=== PATIENT | male | born 2000 | race Caucasian/White ===

== ENCOUNTER → 2019-04-26 | Outpatient (CLI) | payer OTHER ==
[2019-04-26 19:41] LABS: ALBUMIN 3.9 GM/DL (3.2-5.2); ALT/SGPT 47 U/L (12-78); BILIRUBIN,TOTAL 1.1 MG/DL (0.2-1.0); BLOOD UREA NITROGEN 13 MG/DL (7-18); CALCIUM LEVEL 9.1 MG/DL (8.5-10.1); CARBON DIOXIDE LEVEL 24 MEQ/L (21-32); CHLORIDE LEVEL 111 MEQ/L (98-107); CREATININE FOR GFR 0.88 MG/DL (0.70-1.30); FREE T4 0.91 NG/DL (0.78-1.33); GLUCOSE, FASTING 87 MG/DL (70-100); POTASSIUM SERUM 4.2 MEQ/L (3.5-5.1); SODIUM LEVEL 143 MEQ/L (136-145); TOTAL PROTEIN 7.8 GM/DL (6.4-8.2)
[2019-04-26 19:48] LABS: BASO % 0.2 % (0.0-1.0); EOS % 0.8 % (0.0-3.0); HEMATOCRIT 44.4 % (42.0-52.0); HEMOGLOBIN 15.2 g/dl (13.5-17.5); LYMPH % 39.9 % (24.0-44.0); MEAN CORPUSCULAR HEMOGLOBIN 28.4 pg (27.0-33.0); MEAN CORPUSCULAR HGB CONC 34.2 g/dl (32.0-36.5); MONO # 0.5 10^3/uL (0.0-0.8); MONO % 9.7 % (0.0-5.0); NEUTROPHILS # 2.5 10^3/uL (1.8-7.7); NEUTROPHILS % 49.2 % (36.0-66.0); PLATELET COUNT, AUTOMATED 179 10^3/uL (150-450); RED BLOOD COUNT 5.35 10^6/uL (4.30-6.10)
[2019-04-30 00:06] LABS: Lyme Disease IgG Ab 18 kDa Ban Absent (.); Lyme Disease IgG Ab 23 kDa Ban Absent (.); Lyme Disease IgG Ab 28 kDa Ban Absent (.); Lyme Disease IgG Ab 30 kDa Ban Absent (.); Lyme Disease IgG Ab 39 kDa Ban Absent (.); Lyme Disease IgG Ab 41 kDa Ban Present (.); Lyme Disease IgG Ab 45 kDa Ban Absent (.); Lyme Disease IgG Ab 58 kDa Ban Absent (.); Lyme Disease IgG Ab 66 kDa Ban Absent (.); Lyme Disease IgG Ab 93 kDa Ban Absent (.); Lyme Disease IgG West Blot Int Negative (.); Lyme Disease IgG/IgM Antibodie <0.91 ISR (0.00-0.90); Lyme Disease IgM Ab 23 kDa Ban Absent (.); Lyme Disease IgM Ab 39 kDa Ban Absent (.); Lyme Disease IgM Ab 41 kDa Ban Absent (.); Lyme Disease IgM Ab Quantitati 1.91 index (0.00-0.79); Lyme Disease IgM West Blot Int Negative (.)
== END ==
LOC: M LABDRWAD 14:46
PROVIDERS: ATTEND Physician Assistant Medical
DX: R51 Headache (principal); R53.83 Other fatigue; F41.9 Anxiety disorder, unspecified

== ENCOUNTER 2019-08-06 21:55 | Emergency (ER) | payer BC, OTHER ==
[~2019-08-06] VITALS: Ht 188 cm; Wt 109.1 kg
[2019-08-06 21:56] VITALS: BP 135/83
--- NOTE | 2019-08-07 08:10 | REP ---
Chest x-ray: Two views. History: Left-sided chest pain. Findings: The lungs are well inflated and clear. Pleural angles are sharp. Pulmonary vasculature is not increased. No significant bony abnormality. Impression: Negative chest x-ray. Electronically Signed by Martin Vidal MD 08/07/2019 08:02 A
--- NOTE | 2019-08-07 08:28 | ECGEPIP ---
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 Order Number: [id number] Reading MD: Mary Lou Anand Measurements Intervals [place] Rate: 66 P: 9 TX: 139 QRS: 43 QRSD: 107 T: 25 QT: 418 QTc: 441 Interpretive Statements SINUS RHYTHM WITH MARKED SINUS ARRHYTHMIA NO PRIOR Electronically Signed on 08-07-2019 8:28:02 EDT by Mary Lou Anand
== END 2019-08-06 23:00 | disposition home or self-care (01) ==
LOC: M ED 21:55
DX: F41.0 Panic disorder [episodic paroxysmal anxiety] (principal); I49.9 Cardiac arrhythmia, unspecified; F31.9 Bipolar disorder, unspecified

== ENCOUNTER → 2020-02-15 | Outpatient (REF) | payer OTHER ==
[2020-02-16 11:56] LABS: CHLAMYDIA DNA AMPLIFICATION NEGATIVE (NEGATIVE); GC DNA AMPLIFICATION NEGATIVE (NEGATIVE)
== END ==
LOC: M LAB REF 09:28
PROVIDERS: ATTEND Physician Assistant
DX: A74.9 Chlamydial infection, unspecified (principal)

== ENCOUNTER → 2020-04-01 | Outpatient (CLI) | payer OTHER | LOC: M LABSMTC 12:34 | PROVIDERS: ATTEND Family Medicine | DX: Z01.812 Encounter for preprocedural laboratory examination (principal); Z11.59 Encounter for screening for other viral diseases ==

== ENCOUNTER 2020-05-16 22:22 | Inpatient (IN) | payer OTHER ==
[~2020-05-16] VITALS: Ht 182.9 cm; Wt 101.9 kg
[2020-05-16] MEDS ORDERED: CHARCOAL ACTIVATED LIQUID 25 GM/120 ML BTL PO ONE (22:45)
[2020-05-16 23:11] LABS: BASO % 0.3 % (0.0-1.0); EOS # 0.1 10^3/uL (0.0-0.5); EOS % 1.4 % (0.0-3.0); HEMATOCRIT 41.2 % (42.0-52.0); HEMOGLOBIN 14.3 g/dl (13.5-17.5); LYMPH # 2.5 10^3/uL (1.5-5.0); LYMPH % 31.8 % (24.0-44.0); MEAN CORPUSCULAR HEMOGLOBIN 28.8 pg (27.0-33.0); MEAN CORPUSCULAR HGB CONC 34.7 g/dl (32.0-36.5); MEAN CORPUSCULAR VOLUME 83.1 fl (80.0-96.0); MONO # 0.5 10^3/uL (0.0-0.8); MONO % 6.8 % (0.0-5.0); NEUTROPHILS # 4.8 10^3/uL (1.5-8.5); NEUTROPHILS % 59.4 % (36.0-66.0); PLATELET COUNT, AUTOMATED 179 10^3/uL (150-450); RED BLOOD COUNT 4.96 10^6/uL (4.30-6.10)
[2020-05-16 23:35] LABS: AMPHETAMINES LEVEL URINE NEGATIVE (NEGATIVE); BARBITURATES URINE NEGATIVE (NEGATIVE); BENZODIAZEPINES URINE NEGATIVE (NEGATIVE); CANNABINOIDS URINE NEGATIVE (NEGATIVE); COCAINE METABOLITE URINE NEGATIVE (NEGATIVE); METHADONE URINE NEGATIVE (NEGATIVE); OPIATES URINE NEGATIVE (NEGATIVE); PHENCYCLIDINE URINE NEGATIVE (NEGATIVE)
[2020-05-16 23:48] LABS: ALBUMIN 4.2 GM/DL (3.2-5.2); ALT/SGPT 37 U/L (12-78); BILIRUBIN,DIRECT 0.2 MG/DL (0.0-0.2); BLOOD UREA NITROGEN 12 MG/DL (7-18); CALCIUM LEVEL 9.3 MG/DL (8.5-10.1); CARBON DIOXIDE LEVEL 29 MEQ/L (21-32); CHLORIDE LEVEL 109 MEQ/L (98-107); CPK CREATINE PHOSPHOKINASE 475 U/L (39-308); ETHYL ALCOHOL (ETHANOL) < 0.003 % (0.000-0.010); GLOMERULAR FILTRATION RATE > 60.0 (>60); GLUCOSE, FASTING 89 MG/DL (70-100); POTASSIUM SERUM 3.3 MEQ/L (3.5-5.1); SALICYLATE LEVEL < 1.7 MG/DL (5.0-30.0); SODIUM LEVEL 145 MEQ/L (136-145); TOTAL PROTEIN 7.9 GM/DL (6.4-8.2)
[2020-05-16 23:49] LABS: ACETAMINOPHEN LEVEL < 2.0 UG/ML (10.0-30.0)
[2020-05-17] MEDS ORDERED: VENTAER INH (05:55)
[2020-05-17] MEDS ORDERED: ACETAMINOPHEN TAB 650MG DOSE (2X325MG) PO PRN (06:00)
[2020-05-17] MEDS ORDERED: traZODone 50 MG TAB PO PRN (06:00)
[2020-05-17] MEDS ORDERED: OLANZapine 5 MG TAB PO PRN (06:00)
[2020-05-17] MEDS ORDERED: MOM 30ML SUSPENSION UDC PO PRN (06:00)
[2020-05-17] MEDS ORDERED: MAALOX 30 ML SUSP *UDC PO PRN (06:00)
--- NOTE | 2020-05-17 10:37 | ECGEPIP ---
[facility] - ED Test Date: 2020-05-16 Pat Name: BROOK SAHU Department: Room: 0102 Gender: Male Rehabilitation Director: MR : 2000 Requested By: GLORIA Camara Order Number: [id number] Reading MD: Mary Lou Anand Measurements Intervals [place] Rate: 67 P: 15 IA: 122 QRS: 14 QRSD: 102 T: 64 QT: 413 QTc: 438 Interpretive Statements SINUS RHYTHM WITH MARKED SINUS ARRHYTHMIA NSTTW abnormalities SIMILAR 08/06/19 Electronically Signed on 05-17-2020 10:36:55 EDT by Mary Lou Anand
--- NOTE | 2020-05-17 10:41 | ECGEPIP ---
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
[2020-05-17 16:37] VITALS: BP 124/66
--- NOTE | 2020-05-17 17:14 | MHHPEPDOC ---
General Date Of Admission: May 17, 2020 Legal Status: 9.39 Chief Complaint "I ended up taking 10 tablets of Benadryl" History of Present Illness HISTORY OF THE PRESENT ILLNESS: Patient is a 19 -year-old , male, who according to ED report: "Chief Complaint Pt states that he is engaged since January 2020 & his fiance is expecting a baby.He states that he is happy about the upcoming marriage & baby, but his fiance's mother does not like him. Pt states that he & his fiance had an argument but worked through it. However, his fiance's mother began sending him texts saying "hurtful things" & he got upset & took the OD on an impulse. He states he regretted doing it immediately & he called his father & his father called EMS. Pt denies SI & states he was just feeling overwhelmed. Another trigger is the of his grandmother last year. Pt denies HI. He denies any hx of suicide attempts or self-harm. Pt denies both AH & VH. He does not appear to be psycho tic. Pt does c/o depressed mood & anxiety, but states that both have improved over the past few years. He states that his concentration, energy levels, sleep, & appetite are normal. He is very tearful & states repeatedly that he wants to go home. He appears to be minimizing his sx's in order to be DC. Pt reports that he was dx with bipolar d/o at the age of [age] & was on meds for a number of years but his provider started weaning him off the meds when [age]was [age]. He had one hospitalization in [place] for SI when he was in 4th grade. No current OP tx. Pt denies any substance use & his tox screen was negative." Psychiatric Review of Systems Depression (2 or more weeks): depressed mood, insomnia/hypersomnia (sleeps a lot), feelings of excess/guilt [place] (4 or more days of): denies Psychosis: denies PTSD: denies Anxiety: stressor related anxiety Anxiety/ 6 months or more of: restlessness, keyed up, sleep disturbance Past Psychiatric History Previous Psychiatric Diagnosis: Bipolar disorder, diagnosed when he was 4 years old. At that time he was in [place] Previous Psychiatric Admissions: yes when he was in 4th. grade in [place], [place] Suicide Attempts: Denies Psychiatric Follow-up: he is trying to get some managed care, he would like to be established with a Psychiatrist and a Therapist Psychiatric medications: None at this time but he took Geodon and Sertraline in the past. Past Medical History Medical Problems Asthma Head Injury: Yes Seizures: No Hospitalizations: Yes (Psychiatric hospitalization in [place] during childhood.) Surgeries: Yes (has been stitched several times, tonsillectomy and adenoidectomy. He had screws placed on hisleft arm during childhood after sustaining an injury) Family Medical/Psychiatric HX Medical Problems Dad has hemorrhoids and HTN. Mom has HTN too Psychiatric Disorders: Yes ("A couple of them who had ADHD") Addiction: No Suicide Attemps/Completions: No Addiction History alcohol (socially) Social History Childhood: family, he has a brother, he says he has a great family support. He has a biological brother and 5 adoptive siblings. He gets along with all of them. Grew up with mom and dad. His parents are still together Abuse/Trauma: Denies Current Living Situation: He lives with his GF, she is and she is due on 08/05. Education: Finished HS, planning on going to [employer] Employment: Unemployed at this time Social Support: His family, his GF Legal: Denies Marital: Single, he is in a relationship, lives with GF. They are going to have a child Mental Status Examination General Appearance: unkempt, disheveled, hospital scubs/clothing Build: overweight Demeanor: preoccupied Eye Contact: average Activity: anxious Behavior: cooperative Speech: clear, rapid, spontaneous Mood: depressed, anxious Affect: full, appropriate, congruent, anxious Thought Process: logical/linear Thought Content (Delusions): none reported Thought Content (Other): none reported Thought Content (Aggressive): none reported Perception (Hallucinations): none reported Perception (Other): none reported Cognition (Impairment of): none reported Cognition(Intelligence Est.): average Oriented: Awake, Alert, Oriented times three Insight: fair Judgment: Poor Psychosis: Denies A-FIB/CHADSVASC A-FIB History Current/History of A-Fib/PAF?: No Current PO Anticoag Therapy: No Age/Risk Factor Scoring CHADSVASC: CHADSVASC Response (Comments) Value Age Risk Factor Age < 65 years old 0 Gender Risk Factor Male 0 Hx of CHF No 0 Hx of HTN No 0 Hx of Stroke/TIA/or VTE No 0 Hx of Diabetes No 0 Hx of Vascular Disease No 0 Total 0 Treatment Treatment ordered: NONE Reason Anticoagulant not given: Not indicated/[id number] Assessment Patient is not suicidal, not homicidal, not psychotic. He is tearful because he feels guilty about taking the Benadryl yesterday. He says he never planned on taking an OD, he just did it impulsively, he doesn't know why he did it. As soon as he did it, he called his father. He seems very sensitive to other people's opinions about him, he is sad and anxious, he wants treatment for his mental illness. He was diagnosed with bipolar disorder during childhood, but bipolar d isorder is very rare in children, it presents later in life. He has not been medications for a long period of time and he hs been stable. I won't order any medications because what he needs at this time is support, he needs to set boundaries, he needs coping skills. Initial Treatment Plan 1. Patient was admitted on a [9.39] status. 2. Complete history was obtained. 3. With patients permission, family will be contacted and database will be expanded. 4. Patients medication regimen will be reviewed and changed accordingly. 5. Patient will be provided with protected environment. 6. Patient will be treated with individual, group, and milieu therapies. 7. Patient will receive supportive psych-education. 8. Discharge planning will commence immediately. 9. Outpatient follow-up treatment will be strongly recommended. 10. The initial treatment plan will focus initially on: * Depression. * Risk for suicide. ESTIMATED LENGTH OF STAY: 5-7 DAYS. TIME SPENT COUNSELING AND COORDINATING INITIAL CARE: 60 minutes. Vital Signs Vital Signs Date Time Temp Pulse Resp B/P (MAP) Pulse Ox O2 Delivery O2 Flow Rate FiO2 05/17/20 09:09 96.8 62 16 136/76 (96) 100 Room Air Laboratory Data 24H Labs Laboratory Tests 2 05/16/20 22:47: Immature Granulocyte % (Auto) 0.3, Neutrophils (%) (Auto) 59.4, Lymphocytes (%) (Auto) 31.8, Monocytes (%) (Auto) 6.8H, Eosinophils (%) (Auto) 1.4, Basophils (%) (Auto) 0.3, Neutrophils # (Auto) 4.8, Lymphocytes # (Auto) 2.5, Monocytes # (Auto) 0.5, Eosinophils # (Auto) 0.1, Basophils # (Auto) 0.0, Nucleated Red Blood Cells % (auto) 0.0, Anion Gap 7L, Glomerular Filtration Rate > 60.0, Calcium Level 9.3, Total Bilirubin 1.0, Direct Bilirubin 0.2, Aspartate Amino Transf (AST/SGOT) 32, Alanine Aminotransferase (ALT/SGPT) 37, Alkaline Phos phatase 64, Total Creatine Kinase 475H, Total Protein 7.9, Albumin 4.2, Albumin/Globulin Ratio 1.1, Thyroid Stimulating Hormone (TSH) 1.540, Salicylates Level < 1.7L, Urine Opiates Screen NEGATIVE, Urine Methadone Screen NEGATIVE, Acetaminophen Level < 2.0L, Urine Barbiturates Screen NEGATIVE, Urine Phencyclidine Screen NEGATIVE, Urine Amphetamines Screen NEGATIVE, Urine Benzodiazepines Screen NEGATIVE, Urine Cocaine Metabolite Screen NEGATIVE, Urine Cannabinoids Screen NEGATIVE, Ethyl Alcohol Level < 0.003, Coronavirus (COVID- 19)(PCR) NEGATIVE CBC/BMP Laboratory Tests 05/16/20 22:47 Medications Scheduled PRN Albuterol Sulfate (Ventolin Hfa) 18 Gm Hfa.aer.ad, 1 PUFF INH QID PRN for WHEEZING, (Reported) Allergies Coded Allergies: No Known Allergies (Unverified , 08/06/19) WENDY VELAZQUEZ MD May 17, 2020 17:14
[2020-05-18 06:10] VITALS: BP 109/56
--- NOTE | 2020-05-18 11:12 | MHIPNPDOC ---
[facility] Progress Note Progress Note DATE OF SERVICE: 05/18/20 HPI: Sylvester presents today for a follow-up. He mentions he felt sad, scared, and regretful yesterday but today he states he feels much better. Sylvester reports he is having a baby which was planned and reports he is getting to his fianc on July 07. Sylvester notes he has his own apartment but mentions he has been feeling stressed lately. He reports he did not have any suicidal thoughts when everything was happening, but his future [id number] was being hurtful. He mentions there was no thought process behind it and many things were going on. Sylvester admits he has tried to realize the triggers of his stress and tried to figure out ways to avoid it. He states he has tried to keep up with his diet because last year he was at his heaviest, so once his Buppe , he started to rethink his lifestyle and choices. Objective Appearance: Well groomed. Well nourished. Behavior: Cooperative with good eye contact. Pleasant. Engaged. Affect: Full range. Appropriate to context. Mood: Generally good. Appropriately reactive. Euthymic. Speech: Normal volume. Normal rate. Motor: No gross motor abnormalities. Cognition: Alert, Attentive, and Oriented to person, place, time. Memory: No formal testing. No gross abnormalities of short or retirement memory noted during interview. Thought Form: Linear and goal directed. Thought Content: No thoughts of self harm. No evidence of aggressive or homicidal ideation. No evidence of suicidal ideation. No evidence of delusions. Perception: No perceptual abnormalities noted. Judgement: intact as evidenced by decision making in the recent past. Insight: good insight into symptoms and treatment options. 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 Primarily supportive. Likely discharge on Wednesday if continues to not be suicidal. Educated patient significantly on safety planning and needs counseling. Vital Signs Vital Signs Date Time Temp Pulse Resp B/P (MAP) Pulse Ox O2 Delivery O2 Flow Rate FiO2 05/18/20 06:10 97.2 50 16 109/56 (73) 05/17/20 09:09 100 Room Air Current Medications Current Medications Medications (Trade) Dose Ordered Sig/Abigail Route PRN Reason Start Time Stop Time Status Last Admin Dose Admin Acetaminophen (Tylenol Tab) 650 mg Q6HP PRN PO HEADACHE or DISCOMFORT 05/17/20 06:00 Al Hydrox/Mg Hydrox/Simethicone (Mylanta) 30 ml Q4HP PRN PO HEARTBURN/INDIGESTION 05/17/20 06:00 Home Med (Med Rec Complete!) ASDIRECTED XX 05/17/20 06:00 05/17/20 05:57 DC Magnesium Hydroxide (Milk Of Magnesia) 30 ml DAILYPRN PRN PO CONSTIPATION 05/17/20 06:00 Olanzapine (ZyPREXA) 5 mg Q6HP PRN PO ANXIETY/AGITATION 05/17/20 06:00 Trazodone HCl (Desyrel) 50 mg QHSP PRN PO INSOMNIA 05/17/20 06:00 Allergies Coded Allergies: No Known Allergies (Unverified , 08/06/19) JOSE CARLOS JUAREZ DO May 18, 2020 11:12
[2020-05-18 16:25] VITALS: BP 127/61
[2020-05-19 06:26] VITALS: BP 138/62
--- NOTE | 2020-05-19 12:41 | MHIPNPDOC ---
[facility] Progress Note Progress Note DATE OF SERVICE: 05/19/20 HPI: Sylvester presents today for a follow up and is ready for discharge tomorrow. He is feeling well and denies any suicidal feelings. He has been spending his time singing songs and playing guitar. Objective Appearance: Well nourished. Well groomed. Behavior: Pleasant. Engaged. Cooperative with good eye contact. Affect: Appropriate to context. Full range. Mood: Generally good. Euthymic. Appropriately reactive. Speech: Normal volume. Normal rate. Motor: No gross motor abnormalities. Cognition: Alert, Attentive, and Oriented to person, place, time. Memory: No gross abnormalities of short or video production intern memory noted during interview. No formal testing. Thought Form: Linear and goal directed. Thought Content: No evidence of suicidal ideation. No evidence of delusions. No thoughts of self harm. No evidence of aggressive or homicidal ideation. Perception: No perceptual abnormalities noted. Judgement: intact as evidenced by decision making in the recent past. Insight: good insight into symptoms and treatment options. Assessment F43.20 Adjustment disorder, unspecified Plan Continue to monitor and discharge tomorrow. Vital Signs Vital Signs Date Time Temp Pulse Resp B/P (MAP) Pulse Ox O2 Delivery O2 Flow Rate FiO2 05/19/20 06:26 96.9 59 18 138/62 (87) 05/17/20 09:09 100 Room Air Current Medications Current Medications Medications (Trade) Dose Ordered Sig/Abigail Route PRN Reason Start Time Stop Time Status Last Admin Dose Admin Acetaminophen (Tylenol Tab) 650 mg Q6HP PRN PO HEADACHE or DISCOMFORT 05/17/20 06:00 Al Hydrox/Mg Hydrox/Simethicone (Mylanta) 30 ml Q4HP PRN PO HEARTBURN/INDIGESTION 05/17/20 06:00 Home Med (Med Rec Complete!) ASDIRECTED XX 05/17/20 06:00 05/17/20 05:57 DC Magnesium Hydroxide (Milk Of Magnesia) 30 ml DAILYPRN PRN PO CONSTIPATION 05/17/20 06:00 Olanzapine (ZyPREXA) 5 mg Q6HP PRN PO ANXIETY/AGITATION 05/17/20 06:00 Trazodone HCl (Desyrel) 50 mg QHSP PRN PO INSOMNIA 05/17/20 06:00 Allergies Coded Allergies: No Known Allergies (Unverified , 08/06/19) JOSE CARLOS JUAREZ DO May 19, 2020 12:41
[2020-05-19 16:30] VITALS: BP 110/74
[2020-05-20 06:40] VITALS: BP 114/61
--- NOTE | 2020-05-20 09:13 | MHDSPDOC ---
[facility] Discharge Summary Discharge Summary DATE OF ADMISSION: May 17, 2020 at 05:53 DATE OF DISCHARGE:May 20, 2020 at 13:40 DISCHARGE DIAGNOSES: Adjustment disorder , cluster B personality disorder REASON FOR ADMISSION: 19-year-old man with a history of depression and cluster B personality traits presents after small overdose of Benadryl CONSULTANTS INVOLVED:[ None (basic hospitalist screening)] TREATMENT AND PROGRESS ON THE UNIT : Medication changes: elected against medications, wanted to try primarily focusing therapy, made good progress on the unit Behavior on unit: friendly and amenable Treatment attendance: highly adherent Notable issues on presentation: none State on discharge: [improved] DISCHARGE ASSESSMENT: The patient a 19 year old man, with likely adjustment problems on top of cluster B personality traits, presented to [facility], where they treated with supportive treatments, after discussion of the risks and benefits. Legal status considerations: The patient at the time of discharge did not meet criteria for involuntary admission/extension due to having a [normal] mental status exam, [fair] insight into the situation, They are engaged in the discharge process, as well as being friendly and amenable in behavioral control and havent been engaging in any observed concerning behavior or ideation recently. They decline voluntary extension/admission at this time and must be discharged in good carmen, as Im unable to make a case for holding the patient against their will. They may have historical risk factors of admissions and other interactions with psychiatry however, those are not modifiable from a clinical perspective. The patient will need to be discharged in good carmen. MENTAL STATUS EXAMINATION ON DISCHARGE: [General: Well dressed with good hygiene Speech: Spontaneous and fluid Thought processes: Linear and logical Thought content: Future orientated Abstract reasoning, and computation: Intact Description of associations: Intact Description of abnormal or psychotic thoughts:Denies any suicidal or homicidal ideation. Denies any auditory or visual hallucinations. Does not appear to be responding to internal stimuli. Does not appear to be endorsing any bizarre or paranoid ideation. Judgment: fair Insight: fair Orientation: Alert and orientated 3 Recent and remote memory: Intact Attention span and concentration: Intact Fund of knowledge: Adequate Mood: "okay" Affect: Euthymic with a full range] PLAN/FOLLOWUP ARRANGEMENTS: Follow up appointments made (PCP and MH in 5 days of D/C date) and safety plan completed. Safety Planning aspects completed prior to discharge [Family contact completed, educated on safe practices, instructed on removal and mitigation of dangerous means] [RN reviewed crisis hotline information and other aspects to empower patient to access care in interim before next appointment.] The amount of time spent in the coordination of care for this patient was approximately 30 minutes. Vital Signs/I&Os Vital Signs Date Time Temp Pulse Resp B/P (MAP) Pulse Ox O2 Delivery O2 Flow Rate FiO2 05/20/20 06:40 97.4 68 12 114/61 (78) Room Air 05/17/20 09:09 100 Medications Scheduled PRN Albuterol Sulfate (Ventolin Hfa) 18 Gm Hfa.aer.ad, 1 PUFF INH QID PRN for WHEEZING, (Reported) Allergies Coded Allergies: No Known Allergies (Unverified , 08/06/19) JOSE CARLOS JUAREZ DO May 20, 2020 09:13
== END 2020-05-20 13:40 | disposition home or self-care (01) | DRG 883 ==
LOC: EDBD 22:22 → M ED 22:22 → M ED INP 05-17 05:53 → M PSY 05-17 09:15
PROVIDERS: ADMIT Psychiatry & Neurology Psychiatry; ATTEND Psychiatry & Neurology Addiction Medicine
DX: F60.89 Other specific personality disorders (principal)

== ENCOUNTER 2020-07-25 08:10 | Emergency (ER) | payer OTHER, SELFPAY ==
[~2020-07-25] VITALS: Ht 182.9 cm; Wt 100.0 kg
[~2020-07-25 08:10] MED LIST: VENTAER INH
[2020-07-25] MEDS ORDERED: NS 1,000 ML IV ONE (08:30)
[2020-07-25] MEDS ORDERED: ONDANSETRON 4MG/2ML VIAL IV ONE (08:30)
[2020-07-25] MEDS ORDERED: KETOROLAC 30 MG/ML 1ML VIAL IV ONE (08:30)
[2020-07-25] MEDS ORDERED: ISOVUE-370 76% 100ML VIAL As Ordered ONE (09:17)
[2020-07-25 09:18] LABS: BASO % 0.4 % (0.0-1.0); EOS # 0.1 10^3/uL (0.0-0.5); EOS % 2.2 % (0.0-3.0); HEMATOCRIT 40.2 % (42.0-52.0); HEMOGLOBIN 13.6 g/dl (13.5-17.5); LYMPH # 2.3 10^3/uL (1.5-5.0); LYMPH % 41.1 % (24.0-44.0); MEAN CORPUSCULAR HEMOGLOBIN 28.9 pg (27.0-33.0); MEAN CORPUSCULAR HGB CONC 33.8 g/dl (32.0-36.5); MEAN CORPUSCULAR VOLUME 85.4 fl (80.0-96.0); MONO # 0.3 10^3/uL (0.0-0.8); MONO % 4.9 % (0.0-5.0); NEUTROPHILS # 2.8 10^3/uL (1.5-8.5); NEUTROPHILS % 50.7 % (36.0-66.0); PLATELET COUNT, AUTOMATED 161 10^3/uL (150-450); RED BLOOD COUNT 4.71 10^6/uL (4.30-6.10); WHITE BLOOD COUNT 5.6 10^3/uL (4.0-10.0)
[2020-07-25 09:37] LABS: BILIRUBIN,DIRECT 0.2 MG/DL (0.0-0.2); BILIRUBIN,TOTAL 0.8 MG/DL (0.2-1.0); TOTAL PROTEIN 7.6 GM/DL (6.4-8.2)
--- NOTE | 2020-07-25 10:11 | REPVR ---
PROCEDURE INFORMATION: Exam: CT Abdomen And Pelvis With Contrast Exam date and time: 07/25/2020 8:30 AM Age: 19 years old Clinical indication: Abdominal pain; Additional info: Right lower quadrant pain TECHNIQUE: Imaging protocol: Computed tomography of the abdomen and pelvis with intravenous contrast. Coronal and sagittal reformats were created and reviewed. Radiation optimization: All CT scans at this facility use at least one of these dose optimization techniques: automated exposure control; mA and/or kV adjustment per patient size (includes targeted exams where dose is matched to clinical indication); or iterative reconstruction. Contrast material: ISOVUE 370; Contrast volume: 100 ml; Contrast route: INTRAVENOUS (IV); COMPARISON: No relevant prior studies available. FINDINGS: Lungs: Right middle lobe small peripheral consolidation. Right lower lobe basilar small peripheral ground-glass opacities. Liver: Liver is unremarkable. Gallbladder and bile ducts: The gallbladder is unremarkable. No intrahepatic or extrahepatic bile duct dilation. Pancreas: Pancreas is unremarkable. Spleen: Splenomegaly. The spleen measures 14.2 x 5.9 x 14.6 cm. Adrenals: Adrenal glands are unremarkable. Kidneys and ureters: The kidneys are unremarkable. No abnormal ureteral dilation. Stomach and bowel: The stomach is unremarkable. No evidence of small bowel inflammation or obstruction. No evidence of colonic inflammation or obstruction. Moderate colonic stool burden. Appendix: No evidence of appendicitis. Intraperitoneal space: No free intraperitoneal fluid. No pneumoperitoneum. Vasculature: No abdominal aortic aneurysm. Lymph nodes: No enlarged lymph nodes. Bladder: Urinary bladder is unremarkable. Reproductive: Unremarkable as visualized. Bones/joints: No acute osseous abnormality. L4-L5 small posterior disc bulge. Soft tissues: Unremarkable. IMPRESSION: 1. Splenomegaly. 2. Nonspecific small airspace opacities of the imaged right middle lobe and right lower lobe. Clinical correlation for possible pneumonia is recommended. Electronically signed by: Dante Gong On 07/25/2020 10:10:48 AM
[2020-07-25 12:38] LABS: MONO REFLEX EBV COMP NEGATIVE (NEGATIVE)
[2020-07-25] MEDS ORDERED: MIRA3350 PO (13:55)
[2020-07-25] MEDS ORDERED: AZIT-12 PO (13:55)
[2020-07-25 13:59] VITALS: BP 127/69
[2020-07-26 19:09] LABS: EBV VIRAL CAPSID AG IgG >600.0 U/mL (0.0-17.9); EBV VIRAL CAPSID AG IgM <36.0 U/mL (0.0-35.9)
== END 2020-07-25 14:08 | disposition home or self-care (01) ==
LOC: M ED 08:10
DX: J18.9 Pneumonia, unspecified organism (principal); K59.00 Constipation, unspecified; R16.1 Splenomegaly, not elsewhere classified; F31.9 Bipolar disorder, unspecified; Z87.442 Personal history of urinary calculi; J45.990 Exercise induced bronchospasm
CPT/HCPCS: 74177; 80047; 80076; 81001; 83690; 85025; 86308; 86664; 86665; 87486; 87581; 87633; 87798; 96361; 96374; 96375; 99284; J1885; J2405; Q9967

== ENCOUNTER 2020-08-29 10:27 | Emergency (ER) | payer OTHER ==
[~2020-08-29] VITALS: Ht 182.9 cm; Wt 98.8 kg
[~2020-08-29 10:27] MED LIST changes: +AZIT-12 PO; +MIRA3350 PO
--- NOTE | 2020-08-29 11:27 | REPVR ---
PROCEDURE INFORMATION: Exam: XR Chest, 2 Views Exam date and time: 08/29/2020 11:17 AM Age: 19 years old Clinical indication: Injury or trauma; Other: Box fell on him; Swelling (edema); Additional info: Box fell on patient TECHNIQUE: Imaging protocol: XR of the chest Views: Frontal and lateral upright views. COMPARISON: RI Chest, 2 view PA, Lat 08/06/2019 10:29 PM FINDINGS: Lungs: The lungs are clear bilaterally. The pulmonary vasculature is normal. Pleural space: No pleural effusion. No pneumothorax. Heart/Mediastinum: The heart is normal in size and contour. Mediastinum: Stable. Bones/joints: Stable. IMPRESSION: No acute cardiopulmonary abnormality identified. No acute injury identified. Electronically signed by: Lance Mata On 08/29/2020 11:27:44 AM
[2020-08-29 11:49] VITALS: BP 120/76
== END 2020-08-29 11:51 | disposition home or self-care (01) ==
LOC: M ED 10:27
DX: S23.41XA Sprain of ribs, initial encounter (principal); W22.8XXA Striking against or struck by other objects, initial encounter; Y92.89 Other specified places as the place of occurrence of the external cause; Y93.9 Activity, unspecified; Y99.1 Military activity; J45.909 Unspecified asthma, uncomplicated

== ENCOUNTER 2020-09-19 15:09 | Emergency (ER) | payer OTHER, SELFPAY ==
[~2020-09-19] VITALS: Ht 182.9 cm; Wt 102.7 kg
[2020-09-19] MEDS ORDERED: NS 1,000 ML IV ONE (16:15)
[2020-09-19 17:17] LABS: BASO % 0.3 % (0.0-1.0); EOS # 0.1 10^3/uL (0.0-0.5); EOS % 1.4 % (0.0-3.0); HEMATOCRIT 38.7 % (42.0-52.0); LYMPH # 2.2 10^3/uL (1.5-5.0); LYMPH % 32.3 % (24.0-44.0); MEAN CORPUSCULAR HEMOGLOBIN 28.5 pg (27.0-33.0); MEAN CORPUSCULAR HGB CONC 33.6 g/dl (32.0-36.5); MEAN CORPUSCULAR VOLUME 84.9 fl (80.0-96.0); MONO # 0.3 10^3/uL (0.0-0.8); NEUTROPHILS # 4.1 10^3/uL (1.5-8.5); NEUTROPHILS % 60.8 % (36.0-66.0); PLATELET COUNT, AUTOMATED 155 10^3/uL (150-450); RED BLOOD COUNT 4.56 10^6/uL (4.30-6.10); WHITE BLOOD COUNT 6.7 10^3/uL (4.0-10.0)
[2020-09-19 17:45] LABS: ALT/SGPT 25 U/L (12-78); BILIRUBIN,DIRECT 0.1 MG/DL (0.0-0.2); BILIRUBIN,TOTAL 0.6 MG/DL (0.2-1.0); BLOOD UREA NITROGEN 11 MG/DL (7-18); CALCIUM LEVEL 9.1 MG/DL (8.5-10.1); CARBON DIOXIDE LEVEL 26 MEQ/L (21-32); CHLORIDE LEVEL 109 MEQ/L (98-107); CREATININE FOR GFR 0.87 MG/DL (0.70-1.30); GLOMERULAR FILTRATION RATE > 60.0 (>60); GLUCOSE, FASTING 119 MG/DL (70-100); LIPASE 276 U/L (73-393); POTASSIUM SERUM 3.9 MEQ/L (3.5-5.1); SODIUM LEVEL 142 MEQ/L (136-145); TOTAL PROTEIN 7.3 GM/DL (6.4-8.2)
[2020-09-19 18:09] VITALS: BP 131/69
== END 2020-09-19 18:11 | disposition home or self-care (01) ==
LOC: M ED 15:09
DX: R06.02 Shortness of breath (principal); Z20.828 Contact with and (suspected) exposure to other viral communicable diseases
CPT/HCPCS: 80048; 80076; 83690; 85025; 96360; 99284; U0003

== ENCOUNTER 2020-12-18 10:52 | Emergency (ER) | payer MEDICAID, SELFPAY ==
[~2020-12-18] VITALS: Ht 182.9 cm; Wt 99.9 kg
--- OUTSIDE RECORDS SUMMARY | 2020-12-18 11:00 | CCD ---
Author Author [facility] Organization [facility] Address Unknown Phone Unavailable Care Team Providers Care Gun Welder Name Role Phone IKEAUGUSTO PA Unavailable Unavailable IKE, AUGUSTO PA Unavailable Unavailable IKE, AUGUSTO PA Unavailable Unavailable IKE, AUGUSTO PA Unavailable Unavailable IKE, AUGUSTO PA Unavailable Unavailable IKE, AUGUSTO PA Unavailable Unavailable IKE, AUGUSTO PA Unavailable Unavailable IKE, AUGUSTO PA Unavailable Unavailable IKE, AUGUSTO PA Unavailable Unavailable IKE, AUGUSTO PA Unavailable Unavailable IKE, AUGUSTO PA Unavailable Unavailable IKE, AUGUSTO PA Unavailable Unavailable IKE, AUGUSTO PA Unavailable Unavailable IKE, AUGUSTO PA Unavailable Unavailable IKE, AUGUSTO PA Unavailable Unavailable IKE, AUGUSTO PA Unavailable Unavailable IKE, AUGUSTO PA Unavailable Unavailable IKE, AUGUSTO PA Unavailable Unavailable IKE, AUGUSTO PA Unavailable Unavailable IKE, AUGUSTO PA Unavailable Unavailable IKE, AUGUSTO PA Unavailable Unavailable IKE, AUGUSTO PA Unavailable Unavailable IKE, AUGUSTO PA Unavailable Unavailable IKE, AUGUSTO PA Unavailable Unavailable IKE, AUGUSTO PA Unavailable Unavailable IKE, AUGUSTO PA Unavailable Unavailable IKE, AUGUSTO PA Unavailable Unavailable IKE, AUGUSTO PA Unavailable Unavailable IKE, AUGUSTO PA Unavailable Unavailable IKE, AUGUSTO PA Unavailable Unavailable IKE, AUGUSTO PA Unavailable Unavailable IKE, AUGUSTO PA Unavailable Unavailable IKE, AUGUSTO PA Unavailable Unavailable IKE, AUGUSTO PA Unavailable Unavailable IKE AUGUSTO OLIVIER Unavailable Unavailable IKE, AUGUSTO OLIVIER Unavailable Unavailable IKE AUGUSTO OLIVIER Unavailable Unavailable IKE AUGUSTO OLIVIER Unavailable Unavailable Re-disclosure Warning The records that you are about to access may contain information from federally-assisted alcohol or drug abuse programs. If such information is present, then the following federally mandated warning applies: This information has been disclosed to you from records protected by federal confidentiality rules (42 CFR part 2). The federal rules prohibit you from making any further disclosure of this information unless further disclosure is expressly permitted by the written consent of the person to whom it pertains or as otherwise permitted by 42 CFR part 2. A general authorization for the release of medical or other information is NOT sufficient for this purpose. The Federal rules restrict any use of the information to criminally investigate or prosecute any alcohol or drug abuse patient.The records that you are about to access may contain highly sensitive health information, the redisclosure of which is protected by Article 27-F of the [facility] Public Health law. If you continue you may have access to information: Regarding HIV / AIDS; Provided by facilities licensed or operated by the [facility] Office of Mental Health; or Provided by the [facility] Office for People With Developmental Disabilities. If such information is present, then the following [facility] mandated warning applies: This information has been disclosed to you from confidential records which are protected by state law. State law prohibits you from making any further disclosure of this information without the specific written consent of the person to whom it pertains, or as otherwise permitted by law. Any unauthorized further disclosure in violation of state law may result in a fine or retirement sentence or both. A general authorization for the release of medical or other information is NOT sufficient authorization for further disc losure. Encounters Encounter Providers Location Date Indications Data Source(s ) Outpatient Attender: AUGUSTO cruz 02/15/2020 04:50:00 PM EDT [facility] ([facility] Medications Medication Brand Name Start Date Product Form Dose Route Admi nistrative Instructions Pharmacy Instructions Status Indications Reaction Description Data Source(s) 17 gram/dose 07/25/2020 12:00:00 AM EDT powder 238 USE 17 GRAMS DILUTED IN 8 OUNCES OF JUICE OR WATER DAILY NEEDED FOR CONSTIPATION USE 17 GRAMS DILUTED IN 8 OUNCES OF JUICE OR WATER DAILY NEEDED FOR CONSTIPATION SOLD: 07/26/2020 [facility] 250 mg 07/25/2020 12:00:00 AM EDT tablet 6 TAKE TWO TABLETS BY MOUTH AT ONCE ON THE FIRST DAY THEN TAKE ONE DAILY THEREAFTER TAKE TWO TABLETS BY MOUTH AT ONCE ON THE FIRST DAY THEN TAKE ONE DAILY THEREAFTER SOLD: 07/26/2020 [facility] 250 mg 02/16/2020 12:00:00 AM EDT tablet 4 TAKE 4 TABLETS BY MOUTH FOR 1 DOSE TAKE 4 TABLETS BY MOUTH FOR 1 DOSE SOLD: 02/16/2020 [facility] No Active Medications 02/16/2020 12:00:00 AM EDT active [facility] ([facility], [facility]) Azithromycin 250 MG Oral Tablet Azithromycin 02/15/2020 12:00:00 AM E DT ORAL completed [facility] ([facility], [facility]) Insurance Providers Payer name Policy type / Coverage type Policy ID Covered libertarian ID Covered libertarian's relationship to tilley Policy Tilley Plan Information SELF PAY ONLY [id number] SP [id number] [facility] 040 [id number] UNK2 [id number] EAST HUMANA [id number] FA2 [id number] [place] HUMANA [id number] FA2 [id number] [facility] HUMANA [id number] SP [id number] BRANDON IVY WORKER COMP [id number] SP [id number] FIVE BELOW [id number] SP [id number] SELF PAY ONLY SP BLUE [facility] 040 [id number] UNK2 [id number] O UNAVAILABLE UNAVAILA BLE [facility] 040 [id number] SP [id number] [place] Commercial [id number] Family Dependent [id number] Results ID Date Data Source [id number] 09/19/2020 04:49:00 PM EST [facility] Name Value Range Interpretation Code Description Data Hafsa rce(s) Supporting Document(s) SARS coronavirus 2 RNA [facility] This lab was ordered by [facility] and reported by [facility]. ID Date Data Source [id number] 04/01/2020 12:20:00 PM EDT [facility] Name Value Range Interpretation Code Description Data Hafsa rce(s) Supporting Document(s) SARS CORONAVIRUS 2 RNA [facility] This lab was ordered by [facility] and reported by [facility]. ID Date Data Source [id number] 02/15/2020 07:22:00 PM EDT [facility] Name Value Range Interpretation Code Description Data Hafsa rce(s) Supporting Document(s) Chlamydia Dna Amplification Laboratory test result [facility] ([facility]) A negative test result does not exclude the possibility of infection because test results may be affected by improper specimen collection, technical error, specimen mix-up, concurrent antibiotic therapy, or the number of organisms in the specimen which may be below the sensitivity of the test. GC Dna Amplification Laboratory test result [facility] ([facility]) A negative test result does not exclude the possibility of infection because test results may be affected by improper specimen collection, technical error, specimen mix-up, concurrent antibiotic therapy, or the number of organisms in the specimen which may be below the sensitivity of the test. Procedure Social History Code Duration Value Status Description Data Source(s ) Smoking 02/15/2020 12:00:00 AM EDT Patient has never smoked co mpleted Patient has never smoked [facility] ([facility]) Vital Signs ID Date Data Source UNK Name Value Range Interpretation Code Description Data Source(s) Body temperature 99.2 [degF] 99.2 [degF] [facility] ([facility]) Oxygen saturation in Arterial blood by Pulse oximetry 98 % 98 % [facility] ([facility]) Respiratory rate 16 /min 16 /min [facility] ( [facility]) Heart rate 60 /min 60 /min [facility] ([facility]) Diastolic blood pressure 71 mm[Hg] 71 mm[Hg] [facility] ([facility]) Systolic blood pressure 125 mm[Hg] 125 mm[Hg] [facility] Body mass index (BMI) [Ratio] 29.7 kg/m2 29.7 k g/m2 [facility] ([facility]) Body height 73 [in_i] 73 [in_i] SILVIA ([facility], [facility]) 6'1" Body weight 225.00 [lb_av] 225.00 [lb_av] NICA Barth ([facility], [facility])
--- OUTSIDE RECORDS SUMMARY | 2020-12-18 12:13 | CCD ---
Author Author [facility] Organization [facility] Address Unknown Phone Unavailable Care Team Providers Care Maintenance Service Supervisor Name Role Phone IKEAUGUSTO PA Unavailable Unavailable [...] Unavailable Unavailable IKE, AUGUSTO OLIVIER Unavailable Unavailable Re-disclosure Warning The [...] is protected by Article 27-F of the [facility] Public Health law. If you continue you may have access to information: Regarding HIV / AIDS; Provided by facilities licensed or operated by the [facility] Office of Mental Health; or Provided by the [facility] Office for People With Developmental Disabilities. If such information is present, then the following [facility] mandated warning applies: This information has been [...] law may result in a fine or fdc sentence or both. A general authorization for the release of medical or other information is NOT sufficient authorization for further disc losure. Encounters Encounter Providers Location Date Indications Data Source(s ) Outpatient Attender: AUGUSTO cruz 02/15/2020 04:50:00 PM EDT [facility] ([facility]) Medications Medication Brand Name Start Date Product [...] Medications 02/16/2020 12:00:00 AM EDT active [facility] ([facility]) Azithromycin 250 MG Oral Tablet Azithromycin 02/15/2020 12:00:00 AM E DT ORAL completed [facility] ([facility], [facility]) Insurance Providers Payer name Policy type / Coverage type Policy ID Covered democrat ID Covered democrat's relationship to tilley Policy Tilley Plan Information EMEDNY [id number] SP [id number] SELF PAY ONLY [id number] SP [id number] BCBS [facility] 040 [id number] UNK2 [id number] [facility] [id number] FA2 [id number] [facility] [id number] FA2 [id number] [facility] [id number] SP [id number] BRANDON WRIGHTETT WORKER COMP [id number] SP [id number] FIVE BELOW [id number] SP [id number] SELF PAY ONLY SP BLUE [facility] 040 [id number] UNK2 [id number] O UNAVAILABLE UNAVAILA BLE [facility] 0[facility] [id number] SP [id number] [facility] Commercial [id number] Family Dependent [id number] Results ID Date Data Source [id number] 09/19/2020 04:49:00 PM EST [facility] Name Value Range Interpretation Code Description Data Hafsa rce(s) Supporting Document(s) SARS coronavirus 2 RNA [facility] This lab was ordered by [facility] and reported by [facility]. ID Date Data Source [id number] 04/01/2020 12:20:00 PM EDT [facility] Name Value Range Interpretation Code Description Data Hafsa rce(s) Supporting Document(s) SARS CORONAVIRUS 2 RNA [facility] This lab was ordered by [facility] and reported by [facility]. ID Date Data Source [id number] 02/15/2020 07:22:[facility] Name Value Range Interpretation Code Description Data Hafsa rce(s) Supporting Document(s) Chlamydia Dna Amplification Laboratory test result [facility] ([facility]) A negative test result does not exclude the possibility of infection because test results may be affected by improper specimen collection, technical error, specimen mix-up, concurrent antibiotic therapy, or the number of organisms in the specimen which may be below the sensitivity of the test. GC Dna Amplification Laboratory test result [facility] ([facility]) A negative test result does not exclude [...] smoked co mpleted Patient has never smoked [facility] ([facility]) Vital Signs ID Date Data Source UNK Name Value Range Interpretation Code Description Data Source(s) Body temperature 99.2 [degF] 99.2 [degF] [facility] ([facility]) Oxygen saturation in Arterial blood by Pulse oximetry 98 % 98 % [facility] ([facility]) Respiratory rate 16 /min 16 /min [facility] ( [facility]) Heart rate 60 /min 60 /min [facility] ([facility]) Diastolic blood pressure 71 mm[Hg] 71 mm[Hg] [facility] ([facility]) Systolic blood pressure 125 mm[Hg] 125 mm[facility]Hg] [facility] Body mass index (BMI) [Ratio] 29.7 kg/m2 29.7 k g/m2 [facility] ([facility]) Body height 73 [in_i] 73 [in_i] [facility] ([facility]) 6'1" Body weight 225.00 [lb_av] 225.00 [lb_av] NICA Barth ([facility], [facility])
--- NOTE | 2020-12-18 12:14 | REP ---
INDICATION: left knee injury/pain COMPARISON: None. TECHNIQUE: Five views left knee. FINDINGS: There is no evidence of acute fracture, dislocation, or intrinsic bone disease.There is no definite radiographic evidence of a joint effusion. The joint spaces are unremarkable. IMPRESSION: No fracture or dislocation. <Electronically signed by Marc Patino > 12/18/20 [id number]
[2020-12-18 12:41] VITALS: BP 117/72
== END 2020-12-18 12:43 | disposition home or self-care (01) ==
LOC: M ED 10:52
DX: S83.92XA Sprain of unspecified site of left knee, initial encounter (principal); W20.8XXA Other cause of strike by thrown, projected or falling object, initial encounter; Y92.099 Unspecified place in other non-institutional residence as the place of occurrence of the external cause; Y93.9 Activity, unspecified; Y99.9 Unspecified external cause status; F32.9 Major depressive disorder, single episode, unspecified

== ENCOUNTER 2021-04-20 11:23 | Emergency (ER) | payer MEDICAID, OTHER ==
[~2021-04-20] VITALS: Ht 182.9 cm; Wt 101.7 kg
[2021-04-20 12:16] LABS: BASO % 0.3 % (0.0-1.0); EOS # 0.1 10^3/uL (0.0-0.5); EOS % 1.1 % (0.0-3.0); HEMATOCRIT 41.1 % (42.0-52.0); HEMOGLOBIN 14.1 g/dl (13.5-17.5); LYMPH # 2.2 10^3/uL (1.5-5.0); LYMPH % 29.1 % (24.0-44.0); MEAN CORPUSCULAR HEMOGLOBIN 28.9 pg (27.0-33.0); MEAN CORPUSCULAR HGB CONC 34.3 g/dl (32.0-36.5); MEAN CORPUSCULAR VOLUME 84.2 fl (80.0-96.0); MONO # 0.3 10^3/uL (0.0-0.8); MONO % 4.4 % (2.0-8.0); NEUTROPHILS # 4.9 10^3/uL (1.5-8.5); NEUTROPHILS % 64.8 % (36.0-66.0); PLATELET COUNT, AUTOMATED 184 10^3/uL (150-450); RED BLOOD COUNT 4.88 10^6/uL (4.30-6.10); WHITE BLOOD COUNT 7.5 10^3/uL (4.0-10.0)
[2021-04-20 12:48] LABS: BLOOD UREA NITROGEN 17 MG/DL (7-18); CALCIUM LEVEL 8.8 MG/DL (8.5-10.1); CARBON DIOXIDE LEVEL 25 MEQ/L (21-32); CHLORIDE LEVEL 114 MEQ/L (98-107); CK-MB VALUE MASS 2.6 NG/ML (<3.6); CPK CREATINE PHOSPHOKINASE 435 U/L (39-308); CREATININE FOR GFR 0.85 MG/DL (0.70-1.30); FREE THYROXINE INDEX 2.2 % (1.4-3.8); GLOMERULAR FILTRATION RATE > 60.0 (>60); GLUCOSE, FASTING 99 MG/DL (70-100); POTASSIUM SERUM 4.1 MEQ/L (3.5-5.1); SODIUM LEVEL 144 MEQ/L (136-145); T UPTAKE 32 % (33-40); THYROXINE (T4) 6.8 UG/DL (4.5-12.0); TROPONIN I < 0.02 NG/ML (< 0.10)
[2021-04-20 14:07] LABS: AMPHETAMINES LEVEL URINE NEGATIVE (NEGATIVE); BARBITURATES URINE NEGATIVE (NEGATIVE); BENZODIAZEPINES URINE NEGATIVE (NEGATIVE); CANNABINOIDS URINE NEGATIVE (NEGATIVE); COCAINE METABOLITE URINE NEGATIVE (NEGATIVE); METHADONE URINE NEGATIVE (NEGATIVE); OPIATES URINE NEGATIVE (NEGATIVE); PHENCYCLIDINE URINE NEGATIVE (NEGATIVE)
--- NOTE | 2021-04-20 14:26 | REP ---
INDICATION: headache. COMPARISON: None. TECHNIQUE: Helical scanning is acquired. 5 mm axial images were reformatted. Coronal MPR images were generated. FINDINGS: Bone window settings demonstrate an intact bony calvarium. There is no evidence of skull fracture or incidental bony calvarial lesion. The visualized paranasal sinuses appear clear. No intraorbital abnormality is seen. On soft tissue window setting images; the lateral, third, and fourth ventricles are normal in size and position. Patino-white differentiation pattern is normal above and below the tentorium. There are is no evidence of intracranial hemorrhage. No mass, edema, infarction, or midline shift is seen. No extra-axial fluid collection is appreciated. IMPRESSION: Negative noncontrast head CT. <Electronically signed by Mikal Vidal > 04/20/21 [id number]
[2021-04-20] MEDS ORDERED: ISOVUE-370 76% 100ML VIAL As Ordered ONE (14:36)
--- NOTE | 2021-04-20 15:04 | REP ---
INDICATION: pleuritic CP. COMPARISON: Comparison chest x-ray August 29, 2020.. TECHNIQUE: Contrast dose: 75 ML of Isovue [address] technique: Helical scanning is acquired and overlapping 1.5 mm and contiguous 3 mm axial images are reformatted. In addition, maximum intensity projection and multiplanar re-formation images are generated in sagittal and coronal imaging projections. FINDINGS: There is good opacification in the pulmonary arterial tree. There is no evidence of vessel cut off or filling defect to suggest pulmonary embolus. Homogeneous opacity is seen in the thoracic aorta. There is no evidence of aneurysm or dissection. Lung window settings demonstrate a subtle area of linear density in the right middle lobe just above the right hemidiaphragm consistent with platelike atelectasis. No definite infiltrate is seen. No mass lesion is observed.. No pleural or pericardial effusion is seen. No hilar or mediastinal mass is seen. Some residual thymic tissue is observed in the anterior mediastinum. No extra thoracic mass or adenopathy is seen. In the upper abdomen, normal adrenal glands are seen. Visualized upper abdominal structures are otherwise unremarkable. No bony abnormality is seen. IMPRESSION: No CT evidence of pulmonary embolus. Small zone linear platelike atelectasis in the right middle lobe above the right hemidiaphragm. Residual thymic tissue. Otherwise negative. <Electronically signed by Mikal Vidal > 04/20/21 1500
[2021-04-20 15:23] VITALS: BP 125/63
--- NOTE | 2021-04-21 16:54 | ECGEPIP ---
[facility] - ED Test Date: 2021-04-20 Pat Name: BROOK SAHU Department: Room: - Gender: Male Junior Network Engineer: TONYA : 2000 Requested By: Mary Lou Anand Order Number: [id number] Reading MD: Mary Lou Anand Measurements Intervals [place] Rate: 58 P: 7 CA: 128 QRS: 47 QRSD: 92 T: 31 QT: 426 QTc: 418 Interpretive Statements Sinus bradycardia with sinus arrhythmia Electronically Signed on 04-21-2021 16:53:39 EDT by Mary Lou Anand
== END 2021-04-20 15:40 | disposition home or self-care (01) ==
LOC: M ED 11:23
DX: R09.1 Pleurisy (principal); R42 Dizziness and giddiness; R00.1 Bradycardia, unspecified; K21.9 Gastro-esophageal reflux disease without esophagitis; J45.909 Unspecified asthma, uncomplicated; F31.9 Bipolar disorder, unspecified
CPT/HCPCS: 70450; 71275; 80048; 80307; 82550; 82553; 84436; 84443; 84479; 85025; 93005; 93041; 94760; 99284; Q9967

== ENCOUNTER 2021-07-22 03:43 | Emergency (ER) | payer OTHER ==
[~2021-07-22] VITALS: Ht 185.4 cm; Wt 92.0 kg
[2021-07-22 04:50] LABS: HEMATOCRIT 39.1 % (42.0-52.0); HEMOGLOBIN 13.4 g/dl (13.5-17.5); MEAN CORPUSCULAR HEMOGLOBIN 29.1 pg (27.0-33.0); MEAN CORPUSCULAR HGB CONC 34.3 g/dl (32.0-36.5); PLATELET COUNT, AUTOMATED 155 10^3/uL (150-450); WHITE BLOOD COUNT 6.5 10^3/uL (4.0-10.0)
[2021-07-22 05:22] LABS: AMPHETAMINES LEVEL URINE NEGATIVE (NEGATIVE); BARBITURATES URINE NEGATIVE (NEGATIVE); BENZODIAZEPINES URINE NEGATIVE (NEGATIVE); CANNABINOIDS URINE NEGATIVE (NEGATIVE); COCAINE METABOLITE URINE NEGATIVE (NEGATIVE); METHADONE URINE NEGATIVE (NEGATIVE); OPIATES URINE NEGATIVE (NEGATIVE); PHENCYCLIDINE URINE NEGATIVE (NEGATIVE)
[2021-07-22 05:28] LABS: BLOOD UREA NITROGEN 13 MG/DL (7-18); CALCIUM LEVEL 8.8 MG/DL (8.5-10.1); CARBON DIOXIDE LEVEL 24 MEQ/L (21-32); CHLORIDE LEVEL 109 MEQ/L (98-107); CREATININE FOR GFR 0.96 MG/DL (0.70-1.30); GLOMERULAR FILTRATION RATE > 60.0 (>60); GLUCOSE, FASTING 111 MG/DL (70-100); POTASSIUM SERUM 3.7 MEQ/L (3.5-5.1); SODIUM LEVEL 141 MEQ/L (136-145)
[2021-07-22 05:29] LABS: ACETAMINOPHEN LEVEL < 2.0 UG/ML (10.0-30.0); ALBUMIN 3.7 GM/DL (3.2-5.2); ALT/SGPT 49 U/L (12-78); BILIRUBIN,DIRECT 0.2 MG/DL (0.0-0.2); BILIRUBIN,TOTAL 0.8 MG/DL (0.2-1.0); ETHYL ALCOHOL (ETHANOL) < 0.003 % (0.000-0.010); SALICYLATE LEVEL < 1.7 MG/DL (5.0-30.0); TOTAL PROTEIN 6.9 GM/DL (6.4-8.2)
[2021-07-22 10:46] VITALS: BP 140/63
== END 2021-07-22 10:46 | disposition home or self-care (01) ==
LOC: M ED 03:43
DX: F43.20 Adjustment disorder, unspecified (principal); Z63.1 Problems in relationship with in-laws

== ENCOUNTER 2021-08-28 14:23 | Emergency (ER) | payer OTHER ==
[~2021-08-28] VITALS: Ht 182.9 cm; Wt 97.7 kg
[2021-08-28 14:23] VITALS: BP 123/62
--- OUTSIDE RECORDS SUMMARY | 2021-08-28 14:40 | CCD ---
Author Author [facility] Organization [facility] Address Unknown Phone Unavailable Care Team Providers Care Set Up Worker Name Role Phone Feola, T Ksenia PA Unavailable Unavailable Feola, T Ksenia PA Unavailable Unavailable Feola, T Ksenia PA Unavailable Unavailable Feola, T Ksenia PA Unavailable Unavailable Feola, T Ksenia PA Unavailable Unavailable Feola, T Ksenia PA Unavailable Unavailable Feola, T Ksenia PA Unavailable Unavailable Feola, T Ksenia PA Unavailable Unavailable Feola, T Ksenia PA Unavailable Unavailable Feola, T Ksenia PA Unavailable Unavailable Feola, T Ksenia PA Unavailable Unavailable Feola, T Ksenia PA Unavailable Unavailable Feola, T Ksenia PA Unavailable Unavailable Feola, T Ksenia PA Unavailable Unavailable Feola, T Ksenia PA Unavailable Unavailable Feola, T Ksenia PA Unavailable Unavailable Feola, T Ksenia PA Unavailable Unavailable Feola, T Ksenia PA Unavailable Unavailable Feola, T Ksenia PA Unavailable Unavailable Feola, T Ksenia PA Unavailable Unavailable Feola, T Ksenia PA Unavailable Unavailable Feola, T Ksenia PA Unavailable Unavailable Feola, T Ksenia PA Unavailable Unavailable Feola, T Ksenia PA Unavailable Unavailable Feola, T Ksenia PA Unavailable Unavailable Feola, T Ksenia PA Unavailable Unavailable Feola, T Ksenia PA Unavailable Unavailable Feola, T Ksenia PA Unavailable Unavailable Feola, T Ksenia PA Unavailable Unavailable Feola, T Ksenia PA Unavailable Unavailable Feola, T Ksenia PA Unavailable Unavailable Feola, T Ksenia PA Unavailable Unavailable Feola, T Ksenia PA Unavailable Unavailable Feola, T Ksenia PA Unavailable Unavailable Feola, T Ksenia PA Unavailable Unavailable Feola, T Ksenia PA Unavailable Unavailable Feola, T Ksenia PA Unavailable Unavailable Feola, T Ksenia PA Unavailable Unavailable Feola, T Ksenia PA Unavailable Unavailable Feola, T Ksenia PA Unavailable Unavailable Feola, T Ksenia PA Unavailable Unavailable Re-disclosure Warning The records that [...] is protected by Article 27-F of the [facility] Public Health law. If you continue you may have access to information: Regarding HIV / AIDS; Provided by facilities licensed or operated by the [facility] Office of Mental Health; or Provided by the [facility] Office for People With Developmental Disabilities. If such information is present, then the following [facility] mandated warning applies: This information has [...] law may result in a fine or custodial sentence or both. A general authorization for the release of medical or other information is NOT sufficient authorization for further disc losure. Encounters Encounter Providers Location Date Indications Data Source(s ) Outpatient Attender: Ksenia Baumann CHARLINE 021 10:26:21 AM EDT - 04/20/2021 10:56:24 AM EDT [facility] ([facility] ) Immunizations Vaccine Date Status Description Data Source(s) COVID-19 VACCINE Moderna 02/26/2021 12:00:00 AM EDT completed [facility] Vaccine Series Complete: YESThis Data wa s Submitted to [facility]. COVID-19 VACCINE Moderna 01/29/2021 12:00:00 AM EDT completed [facility] Vaccine Series Complete: NOThis Data was Submitted to [facility]. Medications Medication Brand Name Start Date Product Form Dose Route Admi nistrative Instructions Pharmacy Instructions Status Indications Reaction Description Data Source(s) 17 gram/dose 07/25/2020 12:00:00 AM EDT powder 238 USE 17 GRAMS DILUTED IN 8 OUNCES OF JUICE OR WATER DAILY NEEDED FOR CONSTIPATION USE 17 GRAMS DILUTED IN 8 OUNCES OF JUICE OR WATER DAILY NEEDED FOR CONSTIPATION SOLD: 07/26/2020 [facility] 250 mg 07/25/2020 12:00:00 AM EDT tablet 6 TAKE TWO TABLETS BY MOUTH AT ONCE ON THE FIRST DAY THEN TAKE ONE DAILY THEREAFTER TAKE TWO TABLETS BY MOUTH AT ONCE ON THE FIRST DAY THEN TAKE ONE DAILY THEREAFTER SOLD: 07/26/2020 [facility] Insurance Providers Payer name Policy type / Coverage type Policy ID Covered constitution party ID Covered constitution party's relationship to tilley Policy Tilley Plan Information [place] [employer] [id number] Self [id number] [facility] [id number] SP [id number] [facility] MED[facility] [id number] SP [id number] EMEDNY [id number] SP [id number] EMEDNY [id number] SP [id number] SELF PAY ONLY [id number] SP [id number] BCBS [facility] 040 [id number] UNK2 [id number] EAST HUMANA [id number] FA2 [id number] EAST HUMANA [id number] FA2 [id number] EAST HUMANA [id number] SP [id number] BRANDON IVY WORKER COMP [id number] SP [id number] FIVE BELOW [id number] SP [id number] SELF PAY ONLY SP BLUE [facility] 040 [id number] UNK2 [id number] O UNAVAILABLE UNAVAILA BLE BLUE [facility] 040 [id number] SP [id number] [facility] [id number] [facility] Commercial [id number] Family Dependent [id number] Problems, Conditions, and Diagnoses No Information Surgeries/Procedures No Information Results ID Date Data Source [id number] 09/19/2020 04:49:00 PM EST [facility] Name Value Range Interpretation Code Description Data Hafsa rce(s) Supporting Document(s) SARS coronavirus 2 RNA [facility] This lab was ordered by [facility] and reported by [facility]. Procedure Social History No Information
--- OUTSIDE RECORDS SUMMARY | 2021-08-28 18:38 | CCD ---
Author Author [facility] Organization [facility] Address Unknown Phone Unavailable Care Team Providers Care Seal Extrusion Operator Name Role Phone Feola, T Ksenia PA Unavailable Unavailable Feola, T Ksenia PA Unavailable Unavailable Feola, T Kseina PA Unavailable Unavailable Feola, T Ksenia PA [...] is protected by Article 27-F of the [facility] Public Health law. If you continue you may have access to information: Regarding HIV / AIDS; Provided by facilities licensed or operated by the [facility] Office of Mental Health; or Provided by the [facility] Office for People With Developmental Disabilities. If such information is present, then the following [facility] mandated warning applies: This information has [...] law may result in a fine or nursing home sentence or both. A general authorization for [...] Complete: YESThis Data wa s Submitted to [facility] Via [employer]. COVID-19 VACCINE Moderna 01/29/2021 12:00:00 AM EDT completed [facility] Vaccine Series Complete: NOThis Data was Submitted to [facility] [employer]. Medications Medication Brand Name Start Date Product Form Dose Route Admi nistrative Instructions Pharmacy Instructions Status Indications Reaction Description Data Source(s) 17 gram/dose 07/25/2020 12:00:00 AM EDT powder 238 USE 17 GRAMS DILUTED IN 8 OUNCES OF JUICE OR WATER DAILY NEEDED FOR CONSTIPATION USE 17 GRAMS DILUTED IN 8 OUNCES OF JUICE OR WATER DAILY NEEDED FOR CONSTIPATION SOLD: 07/26/2020 [facility] 250 mg 07/25/2020 12:00:00 AM EDT tablet 6 TAKE TWO TABLETS BY MOUTH AT ONCE ON THE FIRST DAY THEN TAKE ONE DAILY THEREAFTER TAKE TWO TABLETS BY MOUTH AT ONCE ON THE FIRST DAY THEN TAKE ONE DAILY THEREAFTER SOLD: 07/26/2020 [facility] Insurance Providers Payer name Policy type / Coverage type Policy ID Covered republican ID Covered republican's relationship to tilley Policy Tilley Plan Information [employer] [id number] Self [id number] [facility] [id number] SP [id number] [facility] MEDICAID [id number] SP [id number] SP [id number] SELF PAY ONLY [id number] SP [id number] [facility] [id number] [employer] [id number] FA2 [id number] [id number] FA2 [id number] [employer] [id number] SP [id number] [employer] COMP [id number] SP [id number] FIVE BELOW [id number] SP [id number] SELF PAY ONLY SP [facility] [id number] O UNAVAILABLE UNAVAILA BLE [facility] [id number] SP [id number] [facility] [id number] [facility] Commercial [id number] Family Dependent [id number] Problems, Conditions, and Diagnoses No Information Surgeries/Procedures No Information Results ID Date Data Source [id number] 09/19/2020 04:49:00 PM EST [facility] Name Value Range Interpretation Code Description Data Hafsa rce(s) Supporting Document(s) SARS coronavirus 2 RNA [facility] This lab was ordered by [facility] and reported by [facility]. Procedure Social History No Information
== END 2021-08-28 18:47 | disposition left against medical advice (07) ==
LOC: M ED 14:23
DX: Z53.21 Procedure and treatment not carried out due to patient leaving prior to being seen by health care provider (principal)

== ENCOUNTER 2022-02-02 18:44 | Emergency (ER) | payer OTHER ==
[~2022-02-02] VITALS: Ht 180.3 cm; Wt 98.2 kg
[2022-02-02] MEDS ORDERED: ACETAMINOPHEN 500 MG TAB PO ONE (22:20)
[2022-02-02 22:30] VITALS: BP 130/66
== END 2022-02-02 22:51 | disposition home or self-care (01) ==
LOC: M ED 18:44
DX: M79.672 Pain in left foot (principal); J45.909 Unspecified asthma, uncomplicated; Z83.2 Family history of diseases of the blood and blood-forming organs and certain disorders involving the immune mechanism

== ENCOUNTER 2022-07-24 05:40 | Emergency (ER) | payer OTHER ==
[~2022-07-24] VITALS: Ht 180.3 cm; Wt 100.0 kg
[2022-07-24 06:19] LABS: BASO % 0.3 % (0.0-1.0); EOS # 0.1 10^3/uL (0.0-0.5); EOS % 1.2 % (0.0-3.0); HEMATOCRIT 38.6 % (42.0-52.0); HEMOGLOBIN 13.7 g/dl (13.5-17.5); LYMPH % 29.5 % (24.0-44.0); MEAN CORPUSCULAR HEMOGLOBIN 29.5 pg (27.0-33.0); MEAN CORPUSCULAR HGB CONC 35.5 g/dl (32.0-36.5); MONO # 0.3 10^3/uL (0.0-0.8); NEUTROPHILS # 4.4 10^3/uL (1.5-8.5); NEUTROPHILS % 63.7 % (36.0-66.0); PLATELET COUNT, AUTOMATED 173 10^3/uL (150-450); RED BLOOD COUNT 4.65 10^6/uL (4.30-6.10); WHITE BLOOD COUNT 6.9 10^3/uL (4.0-10.0)
[2022-07-24] MEDS ORDERED: KETOROLAC 30 MG/ML 1ML VIAL IV ONE (06:30)
[2022-07-24] MEDS ORDERED: ONDANSETRON 4MG 2ML VIAL IV ONE (06:30)
[2022-07-24] MEDS ORDERED: NS 1,000 ML IV ONE (06:30)
[2022-07-24 06:39] LABS: ALBUMIN 4.2 GM/DL (3.2-5.2); ALT/SGPT 26 U/L (12-78); BILIRUBIN,DIRECT 0.2 MG/DL (0.0-0.2); BILIRUBIN,TOTAL 0.9 MG/DL (0.2-1.0); BLOOD UREA NITROGEN 17 MG/DL (7-18); CALCIUM LEVEL 9.1 MG/DL (8.5-10.1); CARBON DIOXIDE LEVEL 27 MEQ/L (21-32); CHLORIDE LEVEL 108 MEQ/L (98-107); CREATININE FOR GFR 1.21 MG/DL (0.70-1.30); GLOMERULAR FILTRATION RATE > 60.0 (>60); GLUCOSE, FASTING 135 MG/DL (70-100); LIPASE 223 U/L (73-393); SODIUM LEVEL 143 MEQ/L (136-145); TOTAL PROTEIN 7.4 GM/DL (6.4-8.2)
[2022-07-24] MEDS ORDERED: ISOVUE-370 76% 100ML VIAL As Ordered ONE (07:08)
[2022-07-24 08:14] LABS: CK-MB VALUE MASS < 1.0 NG/ML (<3.6); CPK CREATINE PHOSPHOKINASE 157 U/L (39-308); MB/CK RELATIVE INDEX 0.64 (< OR =4)
[2022-07-24] MEDS ORDERED: TAMSULOSIN 0.4 MG CAP PO ONE (09:30)
[2022-07-24] MEDS ORDERED: KETO10TAB PO (09:57)
[2022-07-24] MEDS ORDERED: FLOM0.4C39 PO (09:57)
[2022-07-24] MEDS ORDERED: ONDA4TAB6 PO (10:12)
[2022-07-24 10:49] VITALS: BP 113/58
== END 2022-07-24 10:57 | disposition home or self-care (01) ==
LOC: M ED 05:40
DX: R00.1 Bradycardia, unspecified (principal); N13.0 Hydronephrosis with ureteropelvic junction obstruction; N20.1 Calculus of ureter; F43.20 Adjustment disorder, unspecified; F31.9 Bipolar disorder, unspecified; J45.990 Exercise induced bronchospasm
CPT/HCPCS: 74177; 80048; 80076; 81000; 81015; 82550; 82553; 83605; 83690; 85025; 93005; 93041; 94760; 96361; 96374; 96375; 99284; J1885; J2405; Q9967

== ENCOUNTER → 2022-08-25 | Outpatient (REF) | payer OTHER ==
[~2022-08-25] MED LIST changes: +FLOM0.4C39 PO; +KETO10TAB PO; +ONDA4TAB6 PO
[2022-08-25 18:55] LABS: ALBUMIN 4.6 GM/DL (3.2-5.2); ALT/SGPT 46 U/L (12-78); BILIRUBIN,TOTAL 0.9 MG/DL (0.2-1.0); BLOOD UREA NITROGEN 15 MG/DL (7-18); CALCIUM LEVEL 9.5 MG/DL (8.5-10.1); CARBON DIOXIDE LEVEL 28 MEQ/L (21-32); CHLORIDE LEVEL 106 MEQ/L (98-107); CHOLESTEROL LEVEL 170 MG/DL (<200); CHOLESTEROL RISK RATIO 3.953 (<5); CREATININE FOR GFR 0.99 MG/DL (0.70-1.30); FREE T4 0.98 NG/DL (0.76-1.46); GLOMERULAR FILTRATION RATE > 60.0 (>60); GLUCOSE, FASTING 82 MG/DL (70-100); HDL CHOLESTEROL 43 MG/DL (>40); LDL CHOLESTEROL 108 MG/DL (<100); NON-HDL-C 127 MG/DL; POTASSIUM SERUM 4.2 MEQ/L (3.5-5.1); SODIUM LEVEL 140 MEQ/L (136-145); TOTAL PROTEIN 8.1 GM/DL (6.4-8.2); TRIGLYCERIDES LEVEL 93 MG/DL (<150)
[2022-08-25 20:17] LABS: HEPATITIS C VIRUS ABY INDEX 0.3 INDEX (<0.8)
== END ==
LOC: M LAB REF 16:01
PROVIDERS: ATTEND Family Medicine Addiction Medicine
DX: E66.3 Overweight (principal)